=== PATIENT | female | born 1990 | race Caucasian/White ===

== ENCOUNTER → 2018-02-23 11:37 | Outpatient (CLI) | payer OTHER, MEDICAID, SELFPAY ==
[2018-02-24 11:48] LABS: Strep Grp B PCR NEG for Grp B Strep
== END ==
PROVIDERS: Visit Provider Family Medicine
DX: Z34.93 Encounter for supervision of normal pregnancy, unspecified, third trimester (principal); Z3A.36 36 weeks gestation of pregnancy
CPT/HCPCS: 87653

== ENCOUNTER 2018-03-05 02:18 | Inpatient (IN) | payer OTHER, MEDICAID, SELFPAY ==
--- NOTE | 2018-03-05 04:33 | PM.OBHP.1 ---
OB HPI History of Present Illness Chief complaint: EVALUATION OF LABOR Narrative: Akhil Max is a 27 year old female G3 para 2 estimated due date of 03/22/2018 with LMP and ultrasound. Puts her at 37 weeks and 2 days. She comes in to labor and delivery floor with ermias actively. Started about 10 o'clock at night. Contractions became more uncomfortable and regular and presented. Patient has no bleeding or spotting. No rupture of membranes. She says she has been feeling well. No fevers chills no discharge. care was a transfer of care at 28 weeks. She had routine follow-up during that time. problems include varicella nonimmune rubella nonimmune history of urinary tract infection and anemia treated with iron supplementation. Patient's health history includes GERD no history of hypertension diabetes kidney disease. Past surgical history patient denies any significant surgeries or operations. Past history 2 vaginal deliveries at term 6 lb 11 oz and 6 lb 6 oz. Past Gynecological history no previous history of gynecological infections. labs blood type O positive antibody screen negative RPR nonreactive hepatitis-B surface antigen negative HIV negative GC chlamydia negative rubella non immune hep C negative varicella nonimmune GBS negative hematocrit 8.3 diabetes screen 103 Evaluation Evaluation Variability: Average (6-10) monitor accelerations: Present monitor decelerations: Absent Contraction Frequency (minutes): 3 Uterine Contraction Intensity: Moderate Category of Tracing: I Cervical dilation (cm): 3 Cervical effacement (%): 70 station: -1 Non-invasive Membranes Rupture Test: negative Meds Home Medications Medication Instructions Recorded Confirmed Type doxylamine succinate 12.5 mg PO Q6H #60 tab 09/10/17 Rx pyridoxine (vitamin B6) 25 mg PO Q6H #120 tab 09/10/17 Rx ondansetron [Zofran ODT] 4 mg SUBLINGUAL Q6HP PRN #20 odt 01/12/18 Rx Allergies Allergy/AdvReac Type Severity Reaction Status Date / Time nitrofurantoin AdvReac Intermediate NAUSEA AND Unverified 01/12/18 12:49 [From MACROBID] VOMITING Exam Narrative Exam Narrative: . General: Alert no apparent distress. Affect is appropriate. Ermias it is uncomfortable. HEENT: Neck is supple without lymphadenopathy pupils equal round and reactive. Cardio: S1-S2 regular rate and rhythm. Respiratory: Lungs clear to auscultation. Abdomen: Gravid. Extremities: Normal deep tendon reflexes trace edema. Vaginal exam 3 cm 80-90% effaced -1 station [place]: Ermias regularly every 3-5 minutes with 60 minute contractions moderate and strength. heart tones: 135-140 category 1 Assessment and Plan Plan: Plan: 27-year-old G3 para 2 at 37 and 4 7 weeks in active labor. GBS status is negative. History of significant anemia with last hemoglobin 8.3 on 100 supplementation check CBC. Order routine intrapartum orders. Type and screen for blood have available just in case. Epidural as needed. Continuous monitoring.
[2018-03-05 05:04] LABS: Add Manual Diff / Slide Review NO; Basophils Percent Auto 0.4 % (0-2); Eosinophils Percent Auto 0.2 % (2-4); Hemoglobin 10.2 g/dL (12.0-16.0); Lymphocytes Percent Auto 15.6 % (25-40); Mean Corpuscular HGB Conc 32.8 % (30-36); Mean Corpuscular Volume 76.2 fL (80-100); Monocytes Percent Auto 5.3 % (3-14); Neutrophils Absolute Auto 10500 /uL (3000-5900); Neutrophils Percent Auto 78.5 % (50-75); Platelet Count 228 X10^3/uL (150-400); Red Blood Cell Count 4.07 X10^6/uL (4.0-5.2); White Blood Cell Count 13.4 X10^3/uL (4.5-11.0)
--- NOTE | 2018-03-05 07:21 | PM.OBPNLAB ---
Date/Time Date Patient Seen: 03/05/18 Time Patient Seen: 07:21 Pain Control Pain control: tolerating well and epidural Pelvic Exam Dilation (cm): 5 Effacement (%): 80 station: -1 Amniotic membrane status: Ruptured Comments: Rupture of membranes clear fluid Contractions Contractions on admission: regular Monitor mode: External Contraction pattern: Regular Contraction intensity: Moderate Status status: Category l Heart Rate Baseline: 130 Monitor Accelerations: Present Monitor Decelerations: Absent Monitor Variability: Moderate Assessment and Plan Assessment: active labor Plan: continuous present management
[2018-03-05] MEDS: LACTATED RINGERS 1,000 ML 100 ML IV (07:25)
[2018-03-05] MEDS: LACTATED RINGERS 1,000 ML 125 ML IV (07:28)
[2018-03-05] MEDS: OXYTOCIN 10 UNIT/ML VIAL IM (09:17)
--- NOTE | 2018-03-05 09:21 | PM.OBPRVD ---
Delivery date: 03/05/18 Intrapartal events: None Induction method: none Delivery augmentation: rupture of membranes Delivery monitor: external FHT and external uterine Route of delivery: Episiotomy description: None Laceration description: None Estimated blood loss (mL): 200 Anesthesia type: Epidural Narrative: Mom is AG 3 now para 3 at 37 and 4 7 weeks who came into the hospital with active labor. And dilated to 3 cm. Patient requested epidural anesthesia which was provided. During stage I of labor per mom made good progress. heart tones were reassuring vital signs were stable she was afebrile GBS status was negative. She she received an epidural and had good comfort. She had amniotomy of clear fluid. Stage II reassuring heart tones with early D cells with contractions. Patient post to deliver a viable male infant over intact perineum. Delivery and Head and Shoulders without difficulty. Patient was delivered onto the mother's abdomen. Cord was then caught clamped and transected. IM Pitocin was given and delivery of intact placenta with a three-vessel cord. Estimated blood loss 200 cc. Mom and baby resting comfortably afterwards.
[2018-03-05] MEDS: IBUPROFEN 600 MG TABLET PO ×2 (16:30→22:21)
[2018-03-06] MEDS: IBUPROFEN 600 MG TABLET PO ×2 (05:21→11:45)
[2018-03-06 06:00] LABS: Hemoglobin 9.7 g/dL (12.0-16.0)
--- NOTE | 2018-03-06 08:20 | PM.OBDS.1 ---
Discharge Providers Date of admission: 03/05/18 04:20 Consults: 03/05/18 10:29 Consult to Job Estimator Routine Comment: Discharge provider: Soham Abdullahi MD Summary Date Patient Seen: 03/06/18 Time Patient Seen: 08:21 Peripartum Data Infant Delivery Method: Natural Vaginal Laceration description: None Episiotomy description: None complications: none Status at Discharge Functional status at discharge: independent ambulation Time Spent with Patient Total time spent providing and/or coordinating discharge services: Specific discharge activities: Discharge home follow-up with Dr. Abdullahi 6 weeks Objective Labs Result Diagrams: 03/06/18 05:19 Labs: Laboratory Results - last 24 hr 03/06/18 05:19 Hgb 9.7 L Hct 29.0 L Discharge Plan Discharge Plan Patient Disposition: Home, Self-Care Discharge Med Rec/Prescriptions Prescriptions: New ibuprofen 600 mg Tablet 600 mg PO Q6HR PRN (Reason: Pain, Mild) Qty: 30 RF: 0 docusate sodium 250 mg Capsule 250 mg PO DAILY Qty: 20 RF: 0 ferrous gluconate 324 mg (38 mg iron) Tablet 324 mg PO DAILY Qty: 30 RF: 0 [id number] [Prenatabs Rx] 29 mg iron- 1 mg Tablet 1 tab PO DAILY Qty: 30 RF: 0 Discontinued pyridoxine (vitamin B6) 25 MG tablet 25 mg PO Q6H Qty: 120 RF: 0 doxylamine succinate 25 MG tablet 12.5 mg PO Q6H Qty: 60 RF: 0 ondansetron [Zofran ODT] 4 MG tablet,disintegrating 4 mg Sublingual Q6HP PRNQty: 20 RF: 0 Discharge Data Attending Provider: Soham Abdullahi Admit Date/Time: 03/05/18 04:20
[2018-03-06 09:02] VITALS: BP 108/74; PULSE 67; RESP 16; TEMP 37.1
[2018-03-06] MEDS: PRENATAL VIT,CALC/IRON/FOLIC 1 TABLET 1 TAB PO (09:55)
[2018-03-06] MEDS: DOCUSATE 250 MG CAPSULE PO (09:55)
[2018-03-06] MEDS: LANOLIN OINT 7 GM 1 APPLIC TOP (12:07)
[2018-03-06] MEDS: MEASLES,MUMPS,RUBELLA VACC/PF 0.5 ML VIAL SUBCUT (12:12)
== END 2018-03-06 12:30 | disposition home or self-care (01) | DRG 775 ==
PROVIDERS: Admitting Provider Family Medicine; Visit Provider Family Medicine
DX: O80 Encounter for full-term uncomplicated delivery (principal); Z37.0 Single live birth; Z3A.37 37 weeks gestation of pregnancy
CPT/HCPCS: 01967; 36415; 59050; 59409; 85014; 85018; 85025; 86850; 86900; 86901; G0378; G0379; J2590; J3010

== ENCOUNTER → 2019-06-08 12:08 | Outpatient (CLI) | payer OTHER, SELFPAY | PROVIDERS: PCP Family Medicine; Visit Provider Family Medicine | DX: R30.0 Dysuria (principal) | CPT/HCPCS: 87077; 87086; 87186 ==

== ENCOUNTER → 2019-08-25 16:04 | Outpatient (CLI) | payer OTHER, SELFPAY ==
--- NOTE | 2019-08-25 | DI.MRI.S_ITS ---
PROCEDURE: MR BRAIN (IAC) WWO CON INDICATIONS: Tinnitus, left ear TECHNIQUE: Noncontrast sagittal T1 spin echo, axial FLAIR, axial gradient echo, axial diffusion and ADC through the brain. Axial thin-slice 3D CISS, coronal TruFISP, axial T1 spin echo with fat saturation through the internal auditory canals. After the administration of contrast, thin slice axial and coronal T1 spin echo with fat saturation through the internal auditory canals, and axial T1 spin echo with fat saturation through the brain. COMPARISON: None. FINDINGS: Image quality: Excellent. Cerebellopontine angles: No cerebellopontine angle masses. Inner ear structures appear normally formed. No suspicious enhancement in the internal auditory canal or along the course of the 7th cranial nerve. CSF spaces: Ventricles are normal in size and shape. No extra-axial fluid collections. Basal cisterns are patent. Brain: No intracranial bleeds or mass effects. Barron-white matter interface is intact. No abnormal intracranial enhancement. Diffusion weighted images demonstrate no acute ischemic insults. Brainstem appears normal. Normal intravascular flow voids are present. Skull and face: Calvarial marrow signal is normal. Orbits appear normal. Sinuses: Sinuses and mastoids are clear. IMPRESSION: No discrete mass or suspicious abnormal enhancement involving the IAC or cerebellopontine angles bilaterally. Dictated by: Gerry Greer M.D. on 08/25/2019 at 17:01 Approved by: Gerry Greer M.D. on 08/25/2019 at 17:07
== END ==
PROVIDERS: Family Provider Family Medicine; PCP Family Medicine; Visit Provider Otolaryngology
DX: H93.12 Tinnitus, left ear (principal); H90.42 Sensorineural hearing loss, unilateral, left ear, with unrestricted hearing on the contralateral side
CPT/HCPCS: 70553; A9579

== ENCOUNTER → 2020-01-09 15:43 | Outpatient (CLI) | payer OTHER, SELFPAY ==
--- NOTE | 2020-01-09 15:44 | DI.US.S_ITS ---
PROCEDURE: US OB <= 14 WEEKS FETUS INDICATIONS: RLQ PAIN, POSITIVE PREG TEST, R/O ECTOPIC. Beta-hCG 9654 OUTSIDE/PRIOR DATING DATA: Last menstrual period (LMP): Unknown. LMP-based estimated date of delivery (RICARDO): Unknown. First dating scan (date and location): Today. TECHNIQUE: Real-time scanning was performed of the fetus and maternal pelvic organs, with image documentation. Endovaginal scanning was also performed to better visualize the fetus and maternal ovaries. COMPARISON: None. FINDINGS: The uterus measures 7.8 x 4.1 x 5.7 cm. There is no intrauterine . The endometrial stripe measures 2.7 mm. Maternal organs: The right ovary measures 4.4 x 3.1 x 3.3 cm. Separate from the ovary is a right adnexal mass measuring report 1 x 2.2 x 2.3 cm. No pole is identified. Left ovary: 4.4 x 3.0 x 2.6 cm. Limited images through the kidneys demonstrate no hydronephrosis. IMPRESSION: Findings are highly suspicious for a right adnexal ectopic . Comment: Preliminary findings were reported by the associate director data & analytics to the referring provider at the time of study completion. Dictated by: Steven Lainze M.D. on 01/09/2020 at 16:40 Approved by: Steven Lainez M.D. on 01/09/2020 at 16:47
== END ==
PROVIDERS: Family Provider Family Medicine; PCP Family Medicine; Referring Provider Family Medicine; Visit Provider Family Medicine
DX: O00.109 Unspecified tubal pregnancy without intrauterine pregnancy (principal); R10.31 Right lower quadrant pain
CPT/HCPCS: 76801; 76817

== ENCOUNTER 2020-01-09 17:04 | Day surgery (SDC) | payer OTHER, SELFPAY ==
[2020-01-09] VITALS (8 sets, daily range): BP systolic 99–116; BP diastolic 50–78; PULSE 68–103; RESP 13–24; TEMP 36.6–36.8; O2SAT 95–100
--- NOTE | 2020-01-09 | PATH_ITS ---
[facility] Accession Number: [id number] . 01 Material submitted: . fallopian tube - RIGHT FALLOPIAN TUBE . 01 Clinical history: . ECTOPIC , EXPLORATORY LAP . 02 Diagnosis: Right Fallopian Tube, Salpingectomy: Fimbriated fallopian tube with luminal chorionic villi, consistent with ectopic . No evidence of neoplasm. [facility] 01/12/2020 1210 Local . 02 Electronically signed: . Mehran Flowers MD, PhD, Pathologist NPI- [id number] . 01 Gross description: . Received in formalin, labeled right fallopian tube, is a fimbriated fallopian tube (length-7.5 cm, diameter-up to 2.2 cm) with jacob-purple smooth shiny serosa and a focally dilated lumen (3.5 cm long). The lumen contains red-brown hemorrhagic material. No tissue is identified. Serially sectioned and entirely submitted proximal to distal in cassettes A1-A8, and the fimbria is bivalved and entirely submitted in cassettes A9-A10. ([id number]) /MRV 01/11/2020 1351 Local . 02 Pathologist provided ICD-10: O00.90 . 02 CPT . 193082 Performed at: [address] [facility] [address], [place], [place] [id number] MD Weston Medina MD Phone: [phone] Performed at: 02 [facility] [address] [place], [place] [id number] MD Jerri Guzman MD Phone: [phone]
[2020-01-09 15:33] LABS: HCG Quantitative /Beta subunit 9654 mIU/mL
--- NOTE | 2020-01-09 17:29 | P.HP_ITS ---
History of Present Illness History of Present Illness Date Patient Seen: 01/09/20 Time Patient Seen: 17:29 Date of Onset of Symptoms: 01/08/20 Chief complaint: ectopic , exploratory lap Narrative: This patient is a 29yo @ approx 7 weeks by LMP in the last week of November, presenting after being diagnosed with a right ectopic in the office, confirmed on ultrasound. The patient reports that she was irregularly taking OCPs and was unaware of the until yesterday, when she developed severe right lower quadrant cramping pain and mild to moderate vaginal bleeding. She reports that these symptoms have improved today, but that she presented to the office, where the was confirmed and noted to be in the right fallopian tube on TVUS. She reports otherwise feeling well, with mild ongoing abdominal cramping, no dizziness, palpitations, SOB, nausea, or vomiting, no GI complaints, and no UTI symptoms. 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 She denies history of STDs or PID. Patient History Family & Social History Social History: household members spouse,children Tobacco & Substance use: Smoking Status Former smoker alcohol intake current Meds Home Medications and Allergies Home Medications Medication Instructions Recorded Confirmed Type norgestimate 0.25 mg-ethinyl 1 tab PO DAILY #84 tab 10/31/19 01/09/20 Rx estradiol 35 mcg tablet Allergies Allergy/AdvReac Type Severity Reaction Status Date / Time nitrofurantoin AdvReac Intermediate NAUSEA AND Verified 01/09/20 14:58 [From MACROBID] VOMITING Review of Systems Constitutional Constitutional: Reports system reviewed and no additional complaints, except as documented Cardiovascular Cardiovascular: Reports system reviewed; no additional complaints, except as documented Respiratory Respiratory: Reports system reviewed and no additional complaints, except as documented Gastrointestinal Gastrointestinal: Reports as per HPI Genitourinary Genitourinary: Reports as per HPI Exam Const General: cooperative, healthy appearing, comfortable and anxious GI Palpation: soft, No guarding, mass (RLQ fullness), No rigid and tender (RLQ) Skin General: no rashes or lesions noted Objective Labs Labs: Laboratory Results - last 24 hr 01/09/20 14:46 HCG, Quant [id number] Assessment & Plan Assessment and plan (1) Ectopic : Problem details: This patient presents for laparoscopic unilateral salpingectomy after diagnosis of a right tubal ectopic on exam and ultrasound. Her gestational age is unclear, but B-HCG is >5000, making methotrexate therapy relatively contraindicated. I discussed the exam and imaging findings with the patient, and we discussed the option of medical management, including the chances of success and the risk of rupture and associated morbidity. We also discussed surgical management with laparoscopic salpingectomy, and the risks of laparoscopy including damage to bowel and bladder, bleeding, and conversion to laparotomy. We discussed the risks of infection, and the patient will receive 2g Ancef prior to the procedure as surgical ppx and due to concern about history of UTIs. The patient vocalized understanding of the above, and all questions were answered. The patient will be prepped for surgery. Current visit: Yes Status: Acute
[2020-01-09 17:39] LABS: Add Manual Diff / Slide Review NO; Basophils Absolute Auto 0 /uL (0-100); Basophils Percent Auto 0.2 % (0-2); Eosinophils Absolute Auto 0 /uL (0-450); Eosinophils Percent Auto 0.7 % (2-4); Hematocrit 36.2 % (36-46); Hemoglobin 12.2 g/dL (12.0-16.0); Lymphocytes Absolute Auto 1600 /uL (1100-4500); Lymphocytes Percent Auto 25.3 % (25-40); Mean Corpuscular HGB Conc 33.7 % (30-36); Mean Corpuscular Hemoglobin 29.2 PG (26-34); Mean Corpuscular Volume 86.6 fL (80-100); Monocytes Absolute Auto 400 /uL (0-900); Monocytes Percent Auto 6.6 % (3-14); Neutrophils Absolute Auto 4100 /uL (1500-7000); Neutrophils Percent Auto 67.2 % (50-75); Platelet Count 200 X10^3/uL (150-400); Red Blood Cell Count 4.18 X10^6/uL (4.0-5.2); Red Cell Distribution Width 17.8 % (11.6-14.8); White Blood Cell Count 6.2 X10^3/uL (4.5-11.0)
[2020-01-09] MEDS: LACTATED RINGERS 1,000 ML 100 ML IV (17:40)
[2020-01-09] MEDS: SCOPOLAMINE 1 PATCH TOP (18:33)
[2020-01-09] MEDS: ACETAMINOPHEN 325 MG TABLET 975 MG PO (18:33)
[2020-01-09] MEDS: GABAPENTIN 300 MG CAPSULE PO (18:33)
--- NOTE | 2020-01-09 18:45 | SUR.OPER ---
Lithotomy on padded OR bed, head on pillow, arms secured on padded arm boards at <90 degrees abduction. Legs secured in padded yellow fins stirrups.
[2020-01-09] MEDS: CEFAZOLIN 2 GM/100 ML FROZ.PIGGY IV (19:25)
[2020-01-09] MEDS: LIDOCAINE 1% 30 ML INJ (19:40)
--- NOTE | 2020-01-09 20:21 | PM.OP.1 ---
Operative Date/Time/Diagnoses Date of procedure: 01/09/20 Time of procedure: 19:21 Pre-op diagnosis: right tubal ectopic Post-op diagnosis: same Procedure & Clinicians Procedure: laparoscopic right salpingectomy Same procedure as scheduled: Yes Indications: right sided ectopic Surgeon: Temi Rodríguez Real Estate Photographer: Michelle Martinez Anesthesia Type: General Operative Notes Findings: normal uterus and normal bilateral ovaries, normal left fallopian tube, normal vulva and vagina, normal cervix, normal appendix and abdominal survey. Right fallopian tube with engorged area near fimbriated end, approx. 3cm by 2cm. Minimal active bleeding. Closure Type: primary Specimen(s): other (right fallopian tube) Estimated Blood Loss (mL): 100 Procedure in detail: After proper consents were obtained as detailed in the H and P, the patient was transferred to the operating room. General anesthesia was obtained without difficulty, and the patient was intubated. After a 21 minutes waiting period due to chronic virus precautions, the rest of the surgical team entered the operating room. The patient was placed in the dorsal lithotomy position, and prepped and draped in the usual sterile fashion. A Baird catheter was inserted into the bladder. A speculum was placed into the vagina, and a single-tooth tenaculum used to grasp the anterior lip of the cervix. The cervix was gently dilated to 7 mm with Burns dilators, and a Zumi intrauterine manipulator gently inserted. The single-tooth tenaculum and speculum were removed. Attention was then turned to the abdomen, where approximately 1 cc of 1% lidocaine without epi was infiltrated into the area just below the umbilicus. A scalpel used to make a 5 mm skin incision, and towel clamps were applied on either side of this incision and used to elevate the abdominal wall. A Veress needle was carefully inserted into the abdomen, with sterile water used to confirm intraperitoneal placement. The abdomen was insufflated with CO2 to 15 mm of mercury. The Veress needle was removed, and a 5 mm trocar inserted with gentle traction. The laparoscoped was used to confirm intra-abdominal placement with no damage to bowel, bladder, or other intra-abdominal structures. 1 cc of 1% lidocaine with epi was used to infiltrate a small area of skin approximately 8 cm lateral to this port, and a 5 mm skin incision was made with a scalpel. A 5 mm port was inserted under direct visualization at this site. Attention was turned to the suprapubic area, where 2 cc of 1% lidocaine were used to infiltrate an area in the midline. An 11 mm skin incision was made, and an 11 mm port inserted at this site under direct visualization. An atraumatic grasper was used through the suprapubic port to grasp and elevate the fallopian tube, and the above findings were noted. The PK device was used to serially cauterize and cut the fallopian tube away from the mesial salpinx, preserving blood supply to the ovary. An Endo-Catch bag was carefully advanced through the suprapubic port site, and the surgical specimen placed in the Endo-Catch bag under direct visualization. Due to david virus precautions, the insufflation was allowed to escape through the trocar prior to removal of the bag and trocar. The Endo-Catch bag and port were easily removed through the suprapubic port site without complication. The fascia at the suprapubic port site was closed in a running fashion using 0 Vicryl on a needle. The abdomen was re-insufflated, and a final abdominal survey performed. Good hemostasis was noted at the port site, and any remaining clot was evacuated. Insufflating gas was again emptied through the trocars, and the final 2 ports removed. The skin was closed with 4 0 Monocryl, when Steri-Strips and bandages applied. The patient tolerated the procedure well. The uterine manipulator and Baird catheter were removed at the end of the case. After the appropriate waiting period due to coronavirus precautions, the patient was transferred to the PACU in stable condition. IVF: 900ccs EBL: 100ccs UOP: Not measured, clear, copious Complications: none Post-operative Condition: stable Disposition: PACU Plan for aftercare: Discharge home with routine precautions.
[2020-01-09] MEDS: fentaNYL 100 MCG/2 ML INJ IV ×2 (20:50→20:55)
[2020-01-09] MEDS: KETOROLAC 30 MG/ML VIAL IV (21:01)
[2020-01-09] MEDS: OXYCODONE IR 5 MG TABLET PO (21:26)
[2020-01-09] MEDS: ONDANSETRON 4 MG ODT SL (21:26)
[2020-01-09] MEDS: ONDANSETRON 4 MG/2 ML INJ IV (21:34)
== END 2020-01-09 21:55 | disposition home or self-care (01) ==
LOC: OR 17:07
PROVIDERS: Family Provider Family Medicine; PCP Family Medicine; Referring Provider Obstetrics & Gynecology; Visit Provider Obstetrics & Gynecology
PROC: 0WJJ0ZZ Inspection of Pelvic Cavity, Open Approach (ICD-10-PCS; CPT 49000; principal; 2020-01-09 18:00)
DX: O00.90 Unspecified ectopic pregnancy without intrauterine pregnancy (principal); Z3A.01 Less than 8 weeks gestation of pregnancy
CPT/HCPCS: 59151; 36415; 76801; 76817; 84702; 85025; J0330; J0690; J1100; J1885; J2405; J2704; J3010

== ENCOUNTER → 2020-03-06 12:25 | Outpatient (CLI) | payer OTHER, SELFPAY ==
[2020-03-06 16:53] LABS: HCG Quantitative /Beta subunit 181.1 mIU/mL
== END ==
PROVIDERS: Family Provider Family Medicine; PCP Family Medicine; Referring Provider Family Medicine; Visit Provider Family Medicine
DX: Z34.81 Encounter for supervision of other normal pregnancy, first trimester (principal)
CPT/HCPCS: 36415; 84702

== ENCOUNTER → 2020-03-08 12:07 | Outpatient (CLI) | payer OTHER, SELFPAY | PROVIDERS: Family Provider Family Medicine; PCP Family Medicine; Referring Provider Family Medicine; Visit Provider Family Medicine | DX: Z34.81 Encounter for supervision of other normal pregnancy, first trimester (principal) | CPT/HCPCS: 36415; 84702 ==

== ENCOUNTER → 2020-03-22 13:50 | Outpatient (CLI) | payer OTHER, SELFPAY ==
--- NOTE | 2020-03-22 13:51 | DI.US.S_ITS ---
PROCEDURE: US OB <= 14 WEEKS FETUS INDICATIONS: DATING AND VIABILITY OUTSIDE/PRIOR DATING DATA: Last menstrual period (LMP): 02/08/20. LMP-based estimated date of delivery (RICARDO): 11/14/20. First dating scan (date and location): 03/22/20. Estimated date of delivery (RICARDO) from first dating scan: 11/10/20. TECHNIQUE: Real-time scanning was performed of the fetus and maternal pelvic organs, with image documentation. Endovaginal scanning was also performed to better visualize the fetus and maternal ovaries. COMPARISON: [facility], , OB <= 14 WEEKS FETUS, 01/09/2020, 15:52. FINDINGS: Embryo: [place]-rump length 7 mm correlates with a gestational age of 6 weeks 4 days plus or -5 days. heart rate at 125 beats per minute is present. Measurement variability in dating: +/- 4 weeks by LMP, +/- 7 days by mean sac diameter (use before 6 weeks gestation if crown-rump length not able to be measured), +/- 5 days by crown-rump length (up to 8 weeks 6 days gestation), +/- 7 days by crown-rump length (up to 13 weeks 6 days gestation). Maternal organs: Ovaries normal considering gestational status. Limited images through the kidneys demonstrate no hydronephrosis. IMPRESSION: Single living intrauterine gestation with the delivery they project to be centered on 11/10/20, plus or -5 days. Dictated by: Christopher Lamb M.D. on 03/22/2020 at 14:30 Approved by: Christopher Lamb M.D. on 03/22/2020 at 14:32
== END ==
PROVIDERS: Family Provider Family Medicine; PCP Family Medicine; Referring Provider Family Medicine; Visit Provider Family Medicine
DX: Z34.81 Encounter for supervision of other normal pregnancy, first trimester (principal); Z3A.01 Less than 8 weeks gestation of pregnancy
CPT/HCPCS: 76801

== ENCOUNTER → 2020-04-08 17:07 | Outpatient (CLI) | payer OTHER, SELFPAY ==
[2020-04-08 17:38] LABS: Add Manual Diff / Slide Review NO; Basophils Absolute Auto 0 /uL (0-100); Basophils Percent Auto 0.4 % (0-2); Eosinophils Absolute Auto 200 /uL (0-450); Eosinophils Percent Auto 3.8 % (2-4); Hematocrit 33.8 % (36-46); Hemoglobin 11.9 g/dL (12.0-16.0); Lymphocytes Absolute Auto 1500 /uL (1100-4500); Lymphocytes Percent Auto 26.2 % (25-40); Mean Corpuscular HGB Conc 35.3 % (30-36); Mean Corpuscular Hemoglobin 31.6 PG (26-34); Mean Corpuscular Volume 89.3 fL (80-100); Monocytes Absolute Auto 500 /uL (0-900); Monocytes Percent Auto 8.3 % (3-14); Neutrophils Absolute Auto 3500 /uL (1500-7000); Neutrophils Percent Auto 61.3 % (50-75); Platelet Count 205 X10^3/uL (150-400); Red Blood Cell Count 3.78 X10^6/uL (4.0-5.2); Red Cell Distribution Width 12.7 % (11.6-14.8); White Blood Cell Count 5.7 X10^3/uL (4.5-11.0)
[2020-04-08 18:36] LABS: Appearance Urine UA CLEAR; Bilirubin Urine UA NEGATIVE (NEGATIVE); Color Urine UA YELLOW; Glucose Urine UA NEGATIVE (Negative); Ketones Urine UA NEGATIVE (NEGATIVE); Leukocyte Esterase Urine UA TRACE (NEGATIVE); Nitrite Urine UA NEGATIVE (Negative); Occult Blood Urine UA NEGATIVE (Negative); Protein Urine UA NEGATIVE (Negative); Urobilinogen Urine UA 0.2 E.U./dL (0.2)
[2020-04-08 18:49] LABS: Hepatitis B Surface Antigen NEGATIVE s/c (NEGATIVE); Rubella Antibody IgG 9.5 IU/mL (>15)
[2020-04-08 19:04] LABS: HIV 1 & 2 Ab/Ag 4th Gen Combo NEGATIVE (NEGATIVE); Hep C Virus Ab w/Reflex Quant NEGATIVE s/c (NEGATIVE)
[2020-04-08 19:09] LABS: Amorphous Sediment Urine 1+; Bacteria Urine Few (2-10); Culture Indicated Urine Cult Not Indicated; Mucus Urine 1+ (Negative); RBC Urine 0-1/HPF (0-5/HPF); Squamous Epithelial Cell Urine 1-5 /HPF (0-5/HPF); WBC Urine 1-5/HPF (0-5/HPF)
[2020-04-09 04:12] LABS: RPR Screen Non Reactive (Non Reactive)
[2020-04-09 08:12] LABS: Varicella IgG Antibody <135 index (Immune >165)
== END ==
PROVIDERS: Family Provider Family Medicine; PCP Family Medicine; Referring Provider Family Medicine; Visit Provider Family Medicine
DX: Z34.90 Encounter for supervision of normal pregnancy, unspecified, unspecified trimester (principal)
CPT/HCPCS: 36415; 80055; 81003; 81015; 86787; 86803; 86850; 86900; 86901; 87086; 87389

== ENCOUNTER → 2020-06-06 16:31 | Outpatient (CLI) | payer OTHER, SELFPAY ==
[2020-06-08 20:39] LABS: AFP, Serum 63.4 ng/mL (.); Calc Gestational Age Ultrasound (.); Estriol, Free 1.24 ng/mL (.); Inhibin A, Dimeric 170.56 pg/mL (.); Inhibin A, MoM 0.82 (.); Maternal Ethnicity Caucasian (.); Maternal Weight 104 lbs (.); Number of Fetuses No (.); OSBR Risk 1 IN 5411 (.); Results Report (.); Test Results *Screen Negative* (.); hCG, MoM 0.77 (.); hCG, Serum 31950 mIU/mL (.)
== END ==
PROVIDERS: Family Provider Family Medicine; PCP Family Medicine; Referring Provider Family Medicine; Visit Provider Family Medicine
DX: Z34.82 Encounter for supervision of other normal pregnancy, second trimester (principal); Z3A.17 17 weeks gestation of pregnancy
CPT/HCPCS: 36415; 82105; 82677; 84702; 86336

== ENCOUNTER → 2020-06-27 15:45 | Outpatient (CLI) | payer OTHER, SELFPAY ==
--- NOTE | 2020-06-27 | DI.US.S_ITS ---
PROCEDURE: US OB >= 14 WEEKS FETUS INDICATIONS: ANATOMIC SURVEY OUTSIDE/PRIOR DATING DATA: Last menstrual period (LMP): 02/08/20 . LMP-based estimated date of delivery (RICARDO): 11/14/20 . First dating scan (date and location): 03/22/20 . Estimated date of delivery (RICARDO) from first dating scan: 11/10/19 . TECHNIQUE: Real-time scanning was performed of the fetus, with image documentation and biometric measurements. Endovaginal scanning: Not performed COMPARISON: 03/22/20. FINDINGS: General: A single living intrauterine gestation is present. Presentation: Vertex Placenta: Placental position is anterior , without previa. Amniotic fluid index: 12.5 cm, normal range is 5-24 cm. heart rate: 131 beats per minute. Maternal cervical canal: Four cm long. Normal lower limit is 2.5 cm. biometrics: Biparietal diameter: 4.9 cm, 20 weeks, six days Head circumference: 18.6 cm, 21 weeks, 0 days Abdominal circumference: 15.1 cm, 20 weeks, two days Femur length: 3.3 cm, 20 weeks, two days Estimated gestational age from initial scan: 20 weeks, four days. Composite gestational age from present scan: 20 weeks, four days Estimated weight and percentile: 351 g, 35th percentile Measurement variability for biometric dating: +/- 7 days from 14 weeks to 15 weeks 6 days gestation, +/- 10 days from 16 weeks to 21 weeks 6 days gestation, +/- 2 weeks from 22 weeks to 27 weeks 6 days gestation, +/- 3 weeks for 28 weeks gestation or later. weight reference: 4500 g or EFW >90/95% is considered macrosomia or large for gestational age. EFW <10% is small for gestational age. EFW 5% or less is considered intra-uterine growth restriction. Anatomic survey: Neuro: Ventricles are non-dilated at less than 10 mm. Cisterna magna is normal at 3-11 mm. Cerebellum is normal in size and morphology. Nuchal skin fold: Normal at less than 6 mm between 14-21 weeks gestational age. Face: Nose and lips, facial profile are normal. Spine: No evidence for spina bifida. Heart: 4-chambered heart is present, with normal ventricular outflow tracts. Diaphragm: Diaphragm is intact. Stomach: Left-sided stomach is present. Kidneys: No hydronephrosis. Normal is less than 5 mm in 2nd trimester, less than 7 mm in 3rd trimester. Cord: 3-vessel cord has orthotopic insertion. Bladder: Normal in size. Extremities: All 4 extremities identified. IMPRESSION: 1. Single living intrauterine with appropriate growth since the prior study. 2. Normal anatomy. Dictated by: Stacey Jara M.D. on 06/27/2020 at 18:03 Approved by: Stacey Jara M.D. on 06/27/2020 at 18:06
== END ==
PROVIDERS: Family Provider Family Medicine; PCP Family Medicine; Referring Provider Family Medicine; Visit Provider Family Medicine
DX: Z34.82 Encounter for supervision of other normal pregnancy, second trimester (principal); Z3A.20 20 weeks gestation of pregnancy
CPT/HCPCS: 76811

== ENCOUNTER → 2020-07-29 15:24 | Outpatient (CLI) | payer OTHER, SELFPAY ==
[2020-07-29 17:55] LABS: Hematocrit 29.3 % (36-46)
[2020-07-29 18:09] LABS: GTT (PREG) 1 Hour PP 50gm Dose 108 mg/dL (76-139)
== END ==
PROVIDERS: Family Provider Family Medicine; PCP Family Medicine; Referring Provider Family Medicine; Visit Provider Family Medicine
DX: Z34.82 Encounter for supervision of other normal pregnancy, second trimester (principal); Z3A.24 24 weeks gestation of pregnancy
CPT/HCPCS: 36415; 82950; 85014; 85018

== ENCOUNTER → 2020-10-17 14:57 | Outpatient (CLI) | payer OTHER, SELFPAY ==
[2020-10-18 15:49] LABS: Strep Grp B PCR NEG for Grp B Strep
== END ==
PROVIDERS: Family Provider Family Medicine; PCP Family Medicine; Visit Provider Family Medicine
DX: Z34.83 Encounter for supervision of other normal pregnancy, third trimester (principal); Z3A.36 36 weeks gestation of pregnancy
CPT/HCPCS: 87653

== ENCOUNTER 2020-11-02 05:13 | Inpatient (IN) | payer OTHER, SELFPAY ==
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
[2020-11-02 06:10] LABS: Basophils Absolute Auto 0 /uL (0-100); Basophils Percent Auto 0.3 % (0-2); Eosinophils Absolute Auto 100 /uL (0-450); Eosinophils Percent Auto 0.6 % (2-4); Hematocrit 34.6 % (36-46); Hemoglobin 11.2 g/dL (12.0-16.0); Lymphocytes Absolute Auto 2000 /uL (1100-4500); Lymphocytes Percent Auto 19.4 % (25-40); Mean Corpuscular HGB Conc 32.3 % (30-36); Mean Corpuscular Hemoglobin 26.2 PG (26-34); Mean Corpuscular Volume 80.9 fL (80-100); Monocytes Absolute Auto 600 /uL (0-900); Monocytes Percent Auto 5.9 % (3-14); Neutrophils Absolute Auto 7600 /uL (1500-7000); Neutrophils Percent Auto 73.8 % (50-75); Platelet Count 179 X10^3/uL (150-400); Red Blood Cell Count 4.27 X10^6/uL (4.0-5.2); Red Cell Distribution Width 19.7 % (11.6-14.8); White Blood Cell Count 10.3 X10^3/uL (4.5-11.0)
[2020-11-02 06:11] LABS: Add Manual Diff / Slide Review SLIDE REVIEW
[2020-11-02 06:27] LABS: COVID19 -Nasal RAPID Negative (Negative)
[2020-11-02 06:53] LABS: Anisocytosis 3+
[2020-11-02] MEDS: FENT 2MCG/ML BUPIV 0.125% EPI 200 MCG/100 ML PLAST..BAG 8 MCG EPIDURAL (07:30)
[2020-11-02] MEDS: LACTATED RINGERS 1,000 ML 100 ML IV ×2 (08:02→09:59)
--- NOTE | 2020-11-02 09:33 | PM.OBPNLAB ---
Date/Time Date Patient Seen: 11/02/20 Time Patient Seen: 08:40 Pain Control Pain control: epidural Comments: Patient received epidural and is more comfortable. SROM, scant amount of clear fluid about 20 minutes ago. Pelvic Exam Dilation (cm): 5 Effacement (%): 80 station: -1 Comments: AROM forebag, copious, clear fluid Contractions Contractions on admission: regular Monitor mode: External Pitocin rate (mU/min): 0 Contraction frequency (min): 3 Contraction duration (min): 1 Contraction pattern: Regular Contraction intensity: Moderate Status status: Category l Heart Rate Baseline: 115 Monitor Accelerations: Present Monitor Decelerations: Absent Monitor Variability: Moderate Assessment and Plan Assessment: active labor Plan: continuous present management Comments: Continue to work with anesthesia for adequate pain relief. Anticipate NSVB.
[2020-11-02] MEDS: ePHEDrine 50 MG/ML VIAL IV ×2 (09:45→10:01)
[2020-11-02 10:16] VITALS: BP 95/55
[2020-11-02] MEDS: OXYTOCIN PREMIX 30 UNIT/500 ML PLAST..BAG IV (10:32)
--- NOTE | 2020-11-02 10:42 | PM.OBPNLAB ---
Date/Time Date Patient Seen: 11/02/20 Time Patient Seen: 10:20 Pain Control Pain control: epidural Comments: Baird is in place draining clear urine. Patient had epidural replaced w/ good pain relief this time. BP dropped to 70's/40's after placement and 2 doses of ephedrine 5mg IV push were given. FHR baseline decreased from 115bpm to high 90's with accelerations present throughout the low BP time period, now (@1046) resolved and returned to previous baseline. VS: BP 95/58, HR 76bpm, T36.7C Temporal Pelvic Exam Dilation (cm): 5 Effacement (%): 80 station: -1 Amniotic membrane status: Leaking Contractions Contractions on admission: regular Monitor mode: External Pitocin rate (mU/min): 0 Contraction frequency (min): 6 Contraction duration (min): 1 Contraction pattern: Regular Contraction intensity: Moderate Status status: Category ll Heart Rate Baseline: 115 Monitor Accelerations: Present Monitor Decelerations: Absent Monitor Variability: Moderate Assessment and Plan Assessment: active labor Plan: begin patient augmentation Comments: Recommend pitocin augmentation at this time. Reassess in 2-4 hours or sooner PRN.
--- NOTE | 2020-11-02 12:49 | PM.OBPRVD ---
Labor & Delivery Delivery date: 11/02/20 Intrapartal Events: None Cervical ripening method: none Induction method: none Delivery augmentation: rupture of membranes and pitocin Delivery monitor: external FHT and external uterine Route of delivery: Episiotomy description: None L&D Laceration Description: None Estimated blood loss (mL): 25 Anesthesia Type: Epidural Narrative: Patient labored comfortably with her epidural. Was checked w/ presentation of early decelerations on FHT tracing and found to be C/C/+2. NSVB of a vigorous baby boy in RAMA position required McRobert's maneuver for tight shoulders. Total shoulder dystocia time approximately 60 seconds. There was no NC and was placed immediately on maternal abdomen for drying and skin to skin. 30 units of pitocin in 500mL LR was started at 300mL/hr for AMTSL. After cessation of pulsation, the cord was double clamped by CNM and cut by FOB. Cord blood hold sample was collected. Gentle cord traction led to spontaneous, Rendon delivery of an apparently intact placenta, membranes and 3VC. Vagina and perineum inspected and intact. Fundus immediately firm with minimal bleeding. QBL 25mL. Both mother and baby stable and skin to skin as I left the room. [place] Baby 1: Infant gender: Male Presentation: vertex Position: Right Occiput Anterior Placenta delivery description: Spontaneous Cord Vessel Description: 3 Vessels score (1 min): 9 score (5 min): 9 Plan for aftercare: Routine care
[2020-11-02] MEDS: IBUPROFEN 600 MG TABLET PO (18:50)
[2020-11-02] MEDS: ACETAMINOPHEN 325 MG TABLET 650 MG PO (18:51)
[2020-11-02] MEDS: OXYCODONE IR 5 MG TABLET PO (21:51)
[2020-11-03] MEDS: ACETAMINOPHEN 325 MG TABLET 650 MG PO ×2 (01:02→08:12)
[2020-11-03] MEDS: IBUPROFEN 600 MG TABLET PO ×2 (01:02→08:13)
[2020-11-03] MEDS: OXYCODONE IR 5 MG TABLET PO ×2 (04:39→12:29)
[2020-11-03] MEDS: PRENATAL VIT,CALC/IRON/FOLIC 1 TABLET 1 TAB PO (08:11)
[2020-11-03] MEDS: DOCUSATE 100 MG CAPSULE PO (08:11)
--- NOTE | 2020-11-03 09:21 | P.DS_ITS ---
Discharge Providers Provider Date of admission: 11/02/20 05:13 Discharge Date: 11/03/20 Primary care physician: Soham Abdullahi MD Consults: 11/03/20 12:45 Consult to Land Sales Agent Routine Comment: Discharge provider: Maisha Kirkpatrick CNM Summary Discharge Diagnosis (1) Delivery without complication during current hospitalization: Status: Acute Problem Details: Akhil is sitting up in bed her son. Voiding, ambulating and independently. Tolerating general diet. Pain had been well controlled w/ PO medication. Vaginal bleeding is minimal. is present and supportive. They are both eager for discharge to home with their sonKeon. Time Spent with Patient Time attestation: Total time spent providing and/or coordinating discharge services: 20 Objective Labs Result Diagrams: 11/02/20 06:00 Exam Vital Signs (past 8 hours): BP 103/61, [id number], RR16/min, T36.3C Temporal Other: Fundus firm @ 1-2 below U. Lochia scant, no clots. Perineum intact without edema. Discharge Plan Discharge Plan Patient Disposition: Home Discharge orders & Medications Prescriptions: New oxycodone 5 mg Tablet 5 mg PO Q4HR PRN (Reason: Pain, Moderate (4-6)) 5 Days Qty: 10 RF: 0 ibuprofen 600 mg Tablet 600 mg PO Q6HR PRN (Reason: Pain, Mild (1-3)) 14 Days Qty: 60 RF: 1 acetaminophen 325 mg Tablet 650 mg PO Q6HR PRN (Reason: Pain, Mild (1-3)) 14 Days Qty: 60 RF: 0 Continued prenat.vits,lindsay,rlk-[id number] Tablet 1 tab PO DAILY 365 Days Qty: 365 RF: 0 docusate sodium [Colace] 100 mg capsule 100 mg PO .PRN 14 Days Qty: 14 RF: 0 Discontinued famotidine [Pepcid] 20 mg tablet 20 mg PO DAILY Qty: 30 RF: 2 Follow up/Referrals: Soham Abdullahi MD [Primary Care Provider] - (Follow-up in 6 weeks for routine exam) Diet/Activity/Treatments Diet: Regular Activity: pelvic rest x 6 weeks Skin/Wound/Dressing Care Report to your healthcare provider any signs of infection, such as:: chills, fever, increased pain, unusual drainage and unusual redness Visit Report/Discharge Packet Instructions: DI for Depression, DI for Prescription Opioid Use Discharge Data Primary Care Provider: Soham Abdullahi Attending Provider: Maisha Kirkpatrick
[2020-11-03 09:53] VITALS: BP 103/61; PULSE 71; RESP 16; TEMP 36.3
== END 2020-11-03 13:40 | disposition home or self-care (01) | DRG 807 ==
PROVIDERS: Admitting Provider Nurse Practitioner Obstetrics & Gynecology; Family Provider Family Medicine; PCP Family Medicine; Referring Provider Nurse Practitioner Obstetrics & Gynecology; Visit Provider Nurse Practitioner Obstetrics & Gynecology
DX: O99.02 Anemia complicating childbirth (principal); D64.9 Anemia, unspecified; O66.0 Obstructed labor due to shoulder dystocia; Z37.0 Single live birth; Z3A.38 38 weeks gestation of pregnancy; Z20.822 Contact with and (suspected) exposure to COVID-19
CPT/HCPCS: 01967; 36415; 59050; 85025; 86850; 86900; 86901; 87635; C9803; G0379; J2590

== ENCOUNTER → 2020-12-10 16:27 | Outpatient (CLI) | payer OTHER, SELFPAY ==
[2020-12-10 19:33] LABS: Appearance Urine UA SL CLOUDY; Bilirubin Urine UA NEGATIVE (NEGATIVE); Color Urine UA YELLOW; Glucose Urine UA NEGATIVE (Negative); Ketones Urine UA NEGATIVE (NEGATIVE); Leukocyte Esterase Urine UA NEGATIVE (NEGATIVE); Nitrite Urine UA NEGATIVE (Negative); Occult Blood Urine UA NEGATIVE (Negative); Protein Urine UA NEGATIVE (Negative); Urobilinogen Urine UA 0.2 E.U./dL (0.2)
[2020-12-10 19:49] LABS: Bacteria Urine Many (>30); RBC Urine 0-1/HPF (0-5/HPF); Squamous Epithelial Cell Urine 0-1 /HPF (0-5/HPF); WBC Urine 5-10/HPF (0-5/HPF)
[2020-12-10 19:50] LABS: Culture Indicated Urine Specimen Cultured
== END ==
PROVIDERS: Family Provider Family Medicine; PCP Family Medicine; Visit Provider Family Medicine
DX: R82.90 Unspecified abnormal findings in urine (principal)
CPT/HCPCS: 81001; 87077; 87086; 87186

== ENCOUNTER → 2021-11-03 12:34 | Outpatient (CLI) | payer OTHER, SELFPAY ==
[2021-11-03 13:01] LABS: Add Manual Diff / Slide Review NO; Basophils Absolute Auto 0 /uL (0-100); Basophils Percent Auto 0.8 % (0-2); Eosinophils Absolute Auto 100 /uL (0-450); Eosinophils Percent Auto 1.8 % (2-4); Hematocrit 34.1 % (36-46); Hemoglobin 11.5 g/dL (12.0-16.0); Lymphocytes Absolute Auto 1300 /uL (1100-4500); Lymphocytes Percent Auto 32.8 % (25-40); Mean Corpuscular HGB Conc 33.8 % (30-36); Mean Corpuscular Hemoglobin 29.8 PG (26-34); Mean Corpuscular Volume 88.1 fL (80-100); Monocytes Absolute Auto 300 /uL (0-900); Monocytes Percent Auto 6.5 % (3-14); Neutrophils Absolute Auto 2300 /uL (1500-7000); Neutrophils Percent Auto 58.1 % (50-75); Platelet Count 242 X10^3/uL (150-400); Red Blood Cell Count 3.87 X10^6/uL (4.0-5.2); Red Cell Distribution Width 14.5 % (11.6-14.8)
[2021-11-03 14:08] LABS: TSH w/ Reflex to FT4 0.45 uIU/mL (0.47-4.68)
== END ==
PROVIDERS: Family Provider Family Medicine; PCP Family Medicine; Referring Provider Family Medicine; Visit Provider Family Medicine
DX: F43.22 Adjustment disorder with anxiety (principal)
CPT/HCPCS: 36415; 84439; 84443; 85025

== ENCOUNTER → 2021-11-13 12:47 | Outpatient (CLI) | payer OTHER, SELFPAY ==
[2021-11-13 14:37] LABS: Appearance Urine UA SL CLOUDY; Bilirubin Urine UA NEGATIVE (NEGATIVE); Color Urine UA YELLOW; Glucose Urine UA NEGATIVE (Negative); Ketones Urine UA NEGATIVE (NEGATIVE); Leukocyte Esterase Urine UA TRACE (NEGATIVE); Nitrite Urine UA POSITIVE (Negative); Occult Blood Urine UA NEGATIVE (Negative); Protein Urine UA NEGATIVE (Negative); Urobilinogen Urine UA 0.2 E.U./dL (0.2); pH Urine UA 5.5 (4.5-8.0)
[2021-11-13 14:50] LABS: Bacteria Urine Many (>30); RBC Urine 0-1/HPF (0-5/HPF); Squamous Epithelial Cell Urine 1-5 /HPF (0-5/HPF); WBC Urine 1-5/HPF (0-5/HPF)
[2021-11-13 14:51] LABS: Culture Indicated Urine Specimen Cultured
== END ==
PROVIDERS: Family Provider Family Medicine; PCP Family Medicine; Visit Provider Family Medicine
DX: R30.0 Dysuria (principal)
CPT/HCPCS: 81001; 87077; 87086; 87186

== ENCOUNTER → 2024-07-17 11:13 | Outpatient (CLI) | payer OTHER, SELFPAY ==
[2024-07-17 12:45] LABS: Add Manual Diff / Slide Review NO; Basophils Absolute Auto 0 /uL (0-100); Basophils Percent Auto 0.5 % (0-2); Eosinophils Absolute Auto 100 /uL (0-450); Eosinophils Percent Auto 1.9 % (2-4); Hematocrit 36.7 % (36-46); Hemoglobin 12.7 g/dL (12.0-16.0); Lymphocytes Absolute Auto 1600 /uL (1100-4500); Mean Corpuscular HGB Conc 34.7 % (30-36); Mean Corpuscular Hemoglobin 31.2 PG (26-34); Mean Corpuscular Volume 89.9 fL (80-100); Monocytes Absolute Auto 400 /uL (0-900); Monocytes Percent Auto 7.6 % (3-14); Neutrophils Absolute Auto 2500 /uL (1500-7000); Platelet Count 238 X10^3/uL (150-400); Red Blood Cell Count 4.08 X10^6/uL (4.0-5.2); Red Cell Distribution Width 13.2 % (11.6-14.8); White Blood Cell Count 4.6 X10^3/uL (4.5-11.0)
[2024-07-17 13:44] LABS: TSH w/ Reflex to FT4 0.57 uIU/mL (0.47-4.68)
[2024-07-17 14:03] LABS: Vitamin B12 791 pg/mL (239-931)
[2024-07-17 15:42] LABS: Follicle Stimulating Hormone 3.34 mIU/mL; Luteinizing Hormone 2.94 mIU/mL
== END ==
PROVIDERS: Family Provider Family Medicine; PCP Family Medicine; Referring Provider Family Medicine; Visit Provider Family Medicine
DX: L65.9 Nonscarring hair loss, unspecified (principal); F41.9 Anxiety disorder, unspecified; R68.89 Other general symptoms and signs
CPT/HCPCS: 36415; 82607; 83001; 83002; 84443; 85025

== ENCOUNTER → 2024-11-18 13:12 | Outpatient (CLI) | payer OTHER, SELFPAY | PROVIDERS: Family Provider Family Medicine; PCP Family Medicine; Visit Provider Registered Nurse | DX: R30.0 Dysuria (principal) | CPT/HCPCS: 87086 ==

== ENCOUNTER 2024-11-25 17:04 | Emergency (ER) | payer OTHER, SELFPAY ==
[2024-11-25] VITALS (12 sets, daily range): BP systolic 93–164; BP diastolic 54–67; PULSE 100–133; RESP 12–24; TEMP 37.5–37.6; O2SAT 98–100; BMI 18.9
--- NOTE | 2024-11-25 17:24 | ED_ITS ---
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 potential abdominal pathology contributing to patient's symptoms. This imaging study is pending at the time of shift change, patient is agreeable to transfer of care and is stable at this time. At this time the patient knows all of her results except for her CT scan. She knows she has coronavirus, RSV, elevated LFTs, decreased TSH, normal chest x-ray. She knows that she will need to follow up with her PCP Dr. Abdullahi for further evaluation of her abnormal labs. All questions answered at this time, she is resting comfortably. 2043: Assumed care of the patient by GEOVANNA Youngblood, patient with COVID RSV with viral hepatitis given CT scan showing nonspecific inflammation, no right upper quadrant tenderness to palpation no white count low suspicion of cholecystitis at this point. Symptoms lab work imaging consistent with viral hepatitis as well as possible bacterial sinusitis patient will be sent home with Augmentin instructed follow up with the primary care in outpatient setting, she verbalized understanding of this and agrees to being discharged home with outpatient follow up, patient no longer tachycardic at time of discharge patient sustaining in the 90s. Discharge Plan Departure Patient Disposition: Home Clinical Impression: Coronavirus infection, unspecified, Low thyroid stimulating hormone (TSH) level, Transaminitis, Sinusitis Respiratory syncytial virus (RSV) Qualifiers: RSV infection type: unspecified Qualified Code(s): B33.8 - Other specified viral diseases Activity Restrictions/Additional Instructions: Please follow up with your primary care doctor in outpatient setting Please read the discharge instructions sheet carefully and bring all papers to all doctor follow-up visits, as it may contain information that your doctor may want to see. Disease processes change and evolve, if your symptoms worsen or if you develop any new symptoms that are concerning to you please return for evaluation. Your evaluation today does not show any evidence of any life- threatening/serious illnesses requiring admission to the hospital or surgery. Please follow-up with your doctor for re-evaluation in approximately 1 day. Seek immediate medical attention for any worrisome symptoms. *If you do not have a primary care provider please contact the [facility] Resource line at [phone]. They will ask some questions about your medical history and help get you set up with a doctor in the community. Prescriptions: New amoxicillin-pot clavulanate 875-125 mg tablet 1 tab PO BID 7 Days Qty: 14 0RF No Action norethindrone-e.estradiol-iron [Loestrin Fe 10/23 (28-Day)] 1 mg-20 mcg (21)/75 mg (7) tablet 1 tab PO DAILY Qty: 84 1RF ketoconazole 2 % shampoo 1 applic topical 2XW Qty: 120 2RF clobetasol 0.05 % solution 1 applic topical DAILY 14 Days Qty: 50 3RF Referrals: Soham Abdullahi MD [Primary Care Provider] - Stand Alone Forms: Patient Portal/API/Survey
--- NOTE | 2024-11-25 17:34 | DI.RAD.S_ITS ---
PROCEDURE: XR CHEST 2V INDICATIONS: cough 1 month sepsis TECHNIQUE: 2 views of the chest were acquired. COMPARISON: None. FINDINGS: Surgical changes and devices: None. Lungs and pleura: Lungs are clear. No pleural effusions or pneumothorax. Mediastinum: Mediastinal contours are normal. Heart size is normal. Bones and chest wall: No suspicious bony abnormalities. Soft tissues appear unremarkable. IMPRESSION: No focal infiltrates are seen. No acute cardiopulmonary abnormality is seen. Dictated by: Marvin Dewey M.D. on 11/25/2024 at 17:04 Approved by: Marvin Dewey M.D. on 11/25/2024 at 17:05
[2024-11-25 17:48] LABS: Add Manual Diff / Slide Review NO; Basophils Absolute Auto 100 /uL (0-100); Basophils Percent Auto 0.8 % (0-2); Eosinophils Absolute Auto 0 /uL (0-450); Eosinophils Percent Auto 0.3 % (2-4); Hematocrit 35.1 % (36-46); Hemoglobin 12.1 g/dL (12.0-16.0); Lymphocytes Absolute Auto 3400 /uL (1100-4500); Lymphocytes Percent Auto 42.4 % (25-40); Mean Corpuscular HGB Conc 34.3 % (30-36); Mean Corpuscular Hemoglobin 30.1 PG (26-34); Mean Corpuscular Volume 87.7 fL (80-100); Monocytes Absolute Auto 700 /uL (0-900); Monocytes Percent Auto 8.8 % (3-14); Neutrophils Absolute Auto 3900 /uL (1500-7000); Neutrophils Percent Auto 47.7 % (50-75); Platelet Count 225 X10^3/uL (150-400); Red Blood Cell Count 4.01 X10^6/uL (4.0-5.2); Red Cell Distribution Width 14.2 % (11.6-14.8); White Blood Cell Count 8.1 X10^3/uL (4.5-11.0)
[2024-11-25] MEDS: IBUPROFEN 400 MG TABLET 600 MG PO (17:55)
[2024-11-25 17:56] LABS: Alanine Aminotransferase 84 IU/L (<35); Albumin 3.9 g/dL (3.5-5.0); Alkaline Phosphatase 147 U/L (38-126); Aspartate Aminotransferase 56 IU/L (14-36); BUN Creatinine Ratio 17.4 (6-22); Bilirubin Total 0.6 mg/dL (0.2-1.3); Blood Urea Nitrogen 12 mg/dL (7-17); Calcium 8.9 mg/dL (8.4-10.2); Carbon Dioxide 22 mmol/L (22-32); Chloride 105 mmol/L (98-107); Creatine Kinase < 20 U/L (30-135); Estimated Glomerular Filt Rate > 60 mL/min (>60); Glucose 93 mg/dL (70-100); HEMOLYSIS < 15 (0-50); Lactate (Lactic Acid) 0.8 mmol/L (0.7-2.1); Potassium 3.9 mmol/L (3.4-5.1); Sodium 136 mmol/L (137-145); Total Protein 7.5 g/dL (6.3-8.2)
[2024-11-25] MEDS: ACETAMINOPHEN 325 MG TABLET 975 MG PO (17:56)
[2024-11-25 17:57] LABS: Albumin Globulin Ratio 1.1 (1.0-2.8); Globulin 3.6 g/dL (1.7-4.1); Monotest Negative (Negative)
[2024-11-25] MEDS: SODIUM CHLORIDE 0.9% 485.34 ML IV (17:58)
--- NOTE | 2024-11-25 18:07 | EKG_ITS ---
[address] [address] Test Date: 2024-11-25 Pat Name: Akhil Mcdermott Department: [facility] Room: Gender: Female Copyist: HANY : 1990 Requested By: Order Number: [id number] Reading MD: Jimbo Chang MD Measurements Intervals [place] Rate: 125 P: 57 CT: 174 QRS: 34 QRSD: 70 T: 42 QT: 286 QTc: 412 Interpretive Statements Sinus tachycardia Electronically Signed On 11-26-2024 12:58:51 PST by Jimbo Chang MD
[2024-11-25 18:09] LABS: Troponin I < 0.012 ng/mL (0.01-0.034)
[2024-11-25 18:11] LABS: Appearance Urine UA CLEAR; Bilirubin Urine UA NEGATIVE (NEGATIVE); Color Urine UA YELLOW; Glucose Urine UA NEGATIVE (Negative); Ketones Urine UA 1+ (NEGATIVE); Leukocyte Esterase Urine UA TRACE (NEGATIVE); Nitrite Urine UA NEGATIVE (Negative); Occult Blood Urine UA NEGATIVE (Negative); Protein Urine UA TRACE (Negative); Specific Gravity Urine UA >=1.030 (1.000-1.035)
[2024-11-25 18:13] LABS: Procalcitonin 0.058 ng/mL (<0.5)
[2024-11-25 18:22] LABS: Strep Grp A by PCR Rapid Negative (Negative)
[2024-11-25 18:40] LABS: RBC Urine None Seen (0-5/HPF); Urine Volume 10mL (spun); WBC Urine 1-5/HPF (0-5/HPF)
[2024-11-25 18:41] LABS: Bacteria Urine Many (>30); Culture Indicated Urine Specimen Cultured; Squamous Epithelial Cell Urine 1-5 /HPF (0-5/HPF)
--- NOTE | 2024-11-25 18:55 | DI.CT.S_ITS ---
PROCEDURE: CT ABDOMEN PELVIS W CON INDICATIONS: sepsis elevated LFTs; hx R fallopian tube removal TECHNIQUE: After the administration of intravenous contrast, axial sections acquired from the lung bases to the pubic symphysis. Coronal and sagittal reformats were performed. For radiation dose reduction, the following was used: automated exposure control, adjustment of mA and/or kV according to patient size. COMPARISON: None. FINDINGS: Image quality: Diagnostic. Lower Chest: No significant findings. ABDOMEN: Liver: No solid mass. There is suggestion of mild periportal edema. Gallbladder: No radiopaque gallstones or wall thickening. Biliary ducts: No biliary dilation. Pancreas: No ductal dilation. Spleen: Size is within normal limits. Adrenal Glands: No adrenal nodules. Kidneys and Ureters: Nonobstructing 4 mm superior pole left calculus. No hydronephrosis. No solid mass. No complex renal cystic lesion which requires follow up. Stomach and Bowel: Normal colonic caliber, without significant wall thickening. Normal caliber appendix. Peritoneum: No abnormal intraperitoneal fluid. No free air. Ventral Wall: No significant ventral hernia. Abdominal Nodes: No retroperitoneal or mesenteric adenopathy by size criteria. Vessels: Aorta and inferior vena cava are normal in size. PELVIS: Pelvic Organs: Simple appearing 4.5 cm left adnexal cystic structure, probable ovarian cyst. Bladder: No bladder wall thickening, accounting for underdistention. Pelvic Nodes: No enlarged lymph nodes. Miscellaneous: No inguinal hernias are seen. Bones: No aggressive osseous abnormality. IMPRESSION: There is mild periportal edema, which is nonspecific. Findings can be seen in the setting of hepatitis/cholangitis. Nonobstructing 4 mm left superior pole calculus. No hydronephrosis. Left adnexal 4.5 cm simple appearing cystic structure, probable ovarian cyst. Further evaluation with pelvic ultrasound can be performed. Approved by: Toshia Stringer M.D.,Ph.D. on 11/25/2024 at 20:32
[2024-11-25 19:01] LABS: Adenovirus Not Detected (Not Detect); B. parapertussis Not Detected (Not Detecte); Bordetella pertussis Not Detected (Not Detect); Chlamydophila pneumoniae Not Detected (Not Detect); Coronavirus 229E Not Detected (Not Detect); Coronavirus HKU1 Not Detected (Not Detect); Coronavirus NL 63 Not Detected (Not Detect); Coronavirus OC43 Detected (Not Detect); Human Metapneumovirus Not Detected (Not Detect); Human Rhinovirus/Enterovirus Not Detected (Not Detect); Influenza A Not Detected (Not Detect); Influenza B Not Detected (Not Detect); Mycoplasma pneumoniae Not Detected (Not Detect); Parainfluenza Virus 1 Not Detected (Not Detect); Parainfluenza Virus 2 Not Detected (Not Detect); Parainfluenza Virus 3 Not Detected (Not Detect); Parainfluenza Virus 4 Not Detected (Not Detect); Respiratory Syncytial Virus Detected (Not Detect); SARS- CoV-2 Not Detected (Not Detecte)
[2024-11-25 19:42] LABS: Free T3, Triiodothyronine Free 3.28 pg/mL (2.77-5.27)
[2024-11-25] MEDS: AMOXICILLIN/CLAV 875/125 MG 1 TAB PO (21:08)
== END 2024-11-25 21:26 | disposition home or self-care (01) ==
PROVIDERS: Physician Assistant; Emergency Provider Student in an Organized Health Care Education/Training Program; Family Provider Family Medicine; PCP Family Medicine
DX: B34.2 Coronavirus infection, unspecified (principal); R74.01 Elevation of levels of liver transaminase levels; J32.9 Chronic sinusitis, unspecified; B33.8 Other specified viral diseases; R79.89 Other specified abnormal findings of blood chemistry; R07.9 Chest pain, unspecified; R05.9 Cough, unspecified
CPT/HCPCS: 36415; 71046; 74177; 80053; 81001; 81003; 81025; 82550; 83605; 84145; 84439; 84443; 84481; 84484; 85025; 86318; 87040; 87070; 87086; 87633; 87651; 93005; 93010; 96360; 96361; 99284; Q9967

== ENCOUNTER → 2025-01-02 12:19 | Outpatient (CLI) | payer OTHER, SELFPAY ==
[2025-01-02 13:14] LABS: Influenza A - CEPHEID Flu A NEGATIVE (NEGATIVE); Influenza B - CEPHEID Flu B POSITIVE (NEGATIVE)
[2025-01-02 13:20] LABS: COVID-19 CEPHEID 4-PLEX PCR Negative (Negative)
== END ==
PROVIDERS: Family Provider Family Medicine; PCP Family Medicine; Visit Provider Physician Assistant
DX: R50.9 Fever, unspecified (principal); R05.9 Cough, unspecified
CPT/HCPCS: 0240U

== ENCOUNTER → 2025-01-31 14:30 | Outpatient (CLI) | payer OTHER, SELFPAY ==
[2025-01-31 16:26] LABS: TSH w/ Reflex to FT4 0.54 uIU/mL (0.47-4.68)
[2025-02-02 18:11] LABS: Thyroid Stimulating Immunoglob < 0.10 IU/L (0.00-0.55)
== END ==
PROVIDERS: Family Provider Family Medicine; PCP Family Medicine; Referring Provider Family Medicine; Visit Provider Family Medicine
DX: E05.90 Thyrotoxicosis, unspecified without thyrotoxic crisis or storm (principal)
CPT/HCPCS: 36415; 84443; 84445

== ENCOUNTER → 2025-02-07 14:02 | Outpatient (CLI) | payer OTHER, SELFPAY ==
--- NOTE | 2025-02-07 14:03 | DI.CT.S_ITS ---
PROCEDURE: CT ABDOMEN PELVIS W CON INDICATIONS: liver inflamation TECHNIQUE: After the administration of intravenous contrast, axial sections acquired from the lung bases to the pubic symphysis. Coronal and sagittal reformats were performed. For radiation dose reduction, the following was used: automated exposure control, adjustment of mA and/or kV according to patient size. COMPARISON: [facility], CT, CT ABDOMEN PELVIS W CON, 11/25/2024, 19:38. FINDINGS: Image quality: Diagnostic. Lower Chest: No significant findings. ABDOMEN: Liver: The previously noted periportal edema is no longer present. Subtle 1 cm area of low attenuation adjacent to the fissure for the falciform ligament commonly hepatic focal steatosis unchanged. Otherwise liver is normal in size contour and attenuation. 4 mm non-obstructing renal calculus left superior pole unchanged. Previously noted 4.5 cm left ovarian/adnexal cyst is no longer present. Approximately 1.5 cm right ovarian/adnexal follicle or cyst is noted. Mild nonspecific pelvic free fluid less than on the prior exam. Heterogeneous attenuation retroverted uterus commonly may be artifact due to timing of the contrast bolus although adenomyosis or small leiomyomata or other process could be considered similar to the prior exam. Moderate amount of stool throughout the colon in a pattern of constipation. Mild nonspecific wall thickening of the duodenum and proximal jejunum some of which commonly artifact from partial nondistention although duodenitis, jejunitis/enteritis could have a similar appearance. No abnormally dilated bowel to suggest obstruction. The stomach is distended with food material and contrast postprandial appearance. Gallbladder: No radiopaque gallstones or wall thickening. Biliary ducts: No biliary dilation. Pancreas: No ductal dilation. Spleen: Size is within normal limits. Adrenal Glands: No adrenal nodules. Kidneys and Ureters: No hydronephrosis. No solid mass. No complex renal cystic lesion which requires follow up. Vessels: Aorta and inferior vena cava are normal in size. PELVIS: Bladder: No bladder wall thickening, accounting for underdistention. Pelvic Nodes: No enlarged lymph nodes. Miscellaneous: No inguinal hernias are seen. IMPRESSION: 1 cm low-attenuation commonly hepatic steatosis unchanged. 4 mm nonobstructing left renal calculus. Nonspecific wall thickening of the duodenum and proximal jejunum as discussed above. Other chronic findings as above. Dictated by: Landon Nieves M.D. on 02/07/2025 at 15:13 Approved by: Landon Nieves M.D. on 02/07/2025 at 15:42
== END ==
PROVIDERS: Family Provider Family Medicine; PCP Family Medicine; Referring Provider Family Medicine; Visit Provider Family Medicine
DX: N20.0 Calculus of kidney (principal); N83.209 Unspecified ovarian cyst, unspecified side; K75.9 Inflammatory liver disease, unspecified; K76.0 Fatty (change of) liver, not elsewhere classified
CPT/HCPCS: 74177; Q9967

== ENCOUNTER → 2025-02-09 15:00 | Outpatient (CLI) | payer OTHER, SELFPAY ==
[2025-02-09 17:06] LABS: Add Manual Diff / Slide Review NO; Basophils Absolute Auto 0 /uL (0-100); Basophils Percent Auto 0.2 % (0-2); Eosinophils Absolute Auto 100 /uL (0-450); Eosinophils Percent Auto 0.9 % (2-4); Hematocrit 37.3 % (36-46); Hemoglobin 12.7 g/dL (12.0-16.0); Lymphocytes Absolute Auto 2200 /uL (1100-4500); Lymphocytes Percent Auto 35.9 % (25-40); Mean Corpuscular Hemoglobin 30.8 PG (26-34); Mean Corpuscular Volume 90.6 fL (80-100); Monocytes Absolute Auto 400 /uL (0-900); Monocytes Percent Auto 6.4 % (3-14); Neutrophils Absolute Auto 3400 /uL (1500-7000); Neutrophils Percent Auto 56.6 % (50-75); Platelet Count 210 X10^3/uL (150-400); Red Blood Cell Count 4.11 X10^6/uL (4.0-5.2); Red Cell Distribution Width 13.7 % (11.6-14.8); White Blood Cell Count 6.1 X10^3/uL (4.5-11.0)
[2025-02-09 17:24] LABS: Alanine Aminotransferase 17 IU/L (<35); Albumin Globulin Ratio 1.4 (1.0-2.8); Alkaline Phosphatase 40 U/L (38-126); Aspartate Aminotransferase 27 IU/L (14-36); Bilirubin Total 0.3 mg/dL (0.2-1.3); Bilirubin Unconjugated 0.1 mg/dL (0.0-1.1); Globulin 2.9 g/dL (1.7-4.1); HEMOLYSIS < 15 (0-50); Total Protein 6.9 g/dL (6.3-8.2)
== END ==
LOC: LAB 15:01
PROVIDERS: Family Provider Family Medicine; PCP Family Medicine; Referring Provider Family Medicine; Visit Provider Family Medicine
DX: K75.9 Inflammatory liver disease, unspecified (principal)
CPT/HCPCS: 36415; 80076; 85025